=== PATIENT | female | born 1935 | race Caucasian/White ===

== ENCOUNTER 2020-05-01 18:54 | Inpatient (IN) ==
[2020-05-01 20:05] LABS: Basophils # 0.1 10*3/uL (0.0-0.2); Basophils % 0.5 % (0.0-0.8); Eosinophils % 0.3 % (0.00-10.9); Hematocrit 30.5 VOL% (35.7-47.0); Hemoglobin 9.8 GM/DL (12.0-16.0); Immature Granulocytes % 0.5 %; Immature Granulocytes Absolute 0.07 #; Lymphocytes # 1.2 10*3/uL (1.4-4.0); Lymphocytes % 9.2 % (21.3-54.2); Mean Corpuscular HGB Conc 32.1 GM/DL (32-36); Mean Corpuscular Volume 90.5 FL (87-102); Mean Platelet Volume 8.9 FL (9.6-12.0); Monocytes % 7.1 % (1.7-12.7); Neutrophils % 82.4 % (38.7-73.9); Platelet Count 294 T/CUMM (130-400); Red Blood Count 3.37 MC/CUMM (3.8-5.5); Red Cell Distribution Width 14.1 % (9.3-17.3); White Blood Count 12.9 T/CUMM (4-12)
[2020-05-01 20:20] LABS: INR 1.1; PT Patient Result 11.5 SECS (9.8-11.9)
[2020-05-01] MEDS ORDERED: LORazepam 2 MG/1 ML VIAL IV STA ×2 (20:23→21:48)
[2020-05-01] MEDS ORDERED: LORazepam 2 MG/1 ML VIAL ONE (20:24)
[2020-05-01 20:29] LABS: Albumin 2.3 G/DL (3.4-5.0); Bilirubin,Total 0.4 MG/DL (0.2-1.0); Calcium 8.1 MG/DL (8.5-10.1); Osmolality,Calculated 270.1 MOS/KG (273-304); Total Protein 6.8 G/DL (6.4-8.3)
[2020-05-01 21:33] LABS: Bacteria,Urine Many /HPF (Few); Bilirubin,Urine Negative (Negative); Blood, Urine Small mg/dL (Negative); Glucose,Urine (UA) Negative (Negative); Ketones,Urine Negative (Negative); Mucus,Urine Many /LPF (Occasional); Nitrite,Urine Positive (Negative); Protein,Urine 30 MG/DL; RBC,Urine 21 /HPF (0-4); Urine Appearance CLOUDY (Clear); Urine Color Amber (Yellow); Urine Specific Gravity 1.018 (1.001-1.035); Urine Urobilinogen < 2.0 EU/DL (0.2-1.0); WBC,Urine 653 /HPF (0-6)
[2020-05-01] MEDS ORDERED: cefTRIAXone 1,000 MG in SODIUM CHLORIDE 0.9% 100 ML IV STA (21:49)
[2020-05-01] MEDS ORDERED: ENOXAPARIN 100 MG/ML SYRINGE SUBCUT STA (22:06)
[2020-05-01] MEDS ORDERED: ALUMINUM/MAGNES/SIMETH MAX STR 30 ML UDCUP PO PRN (22:08)
[2020-05-01] MEDS ORDERED: ONDANSETRON 4 MG/2 ML VIAL IV PRN (22:08)
[2020-05-01] MEDS ORDERED: DOCUSATE SODIUM 100 MG CAPSULE PO PRN (22:08)
[2020-05-01] MEDS ORDERED: SODIUM CHLORIDE 0.9% 1,000 ML IV SCH (22:30)
[2020-05-02 04:16] LABS: Basophils # 0.1 10*3/uL (0.0-0.2); Basophils % 0.7 % (0.0-0.8); Eosinophils # 0.1 10*3/uL (0.0-0.87); Eosinophils % 0.8 % (0.00-10.9); Hematocrit 28.6 VOL% (35.7-47.0); Hemoglobin 8.9 GM/DL (12.0-16.0); Immature Granulocytes % 0.5 %; Immature Granulocytes Absolute 0.05 #; Lymphocytes # 1.2 10*3/uL (1.4-4.0); Lymphocytes % 11.8 % (21.3-54.2); Mean Corpuscular HGB Conc 31.1 GM/DL (32-36); Mean Corpuscular Volume 90.5 FL (87-102); Mean Platelet Volume 10.6 FL (9.6-12.0); Monocytes % 9.7 % (1.7-12.7); Neutrophils % 76.5 % (38.7-73.9); Platelet Count 255 T/CUMM (130-400); Red Blood Count 3.16 MC/CUMM (3.8-5.5); Red Cell Distribution Width 14.2 % (9.3-17.3); White Blood Count 10.4 T/CUMM (4-12)
[2020-05-02 04:50] LABS: Calcium 8.5 MG/DL (8.5-10.1); Osmolality,Calculated 274.7 MOS/KG (273-304); Risk Ratio 4.06; Thyroid Stimulating Hormone 3.15 uIU/ml (0.358-3.74); VLDL CHOLESTEROL 13.6 MG/DL
[2020-05-02] MEDS ORDERED: POTASSIUM CHLORIDE 20 MEQ TABLET PO ONE (06:51)
[2020-05-02] MEDS ORDERED: MAGNESIUM SULF RIDER 2 GM in PREMIX 1 EACH IV ONE (06:52)
[2020-05-02] MEDS ORDERED: DILTIAZEM 60 MG TABLET PO SCH ×2 (09:00→15:00)
[2020-05-02] MEDS: ACETAMINOPHEN 325 MG TABLET PO PRN ×2 (09:14→17:59)
[2020-05-02] MEDS: ENOXAPARIN 60 MG/0.6 ML SYRINGE SUBCUT SCH ×2 (09:14→20:42)
[2020-05-02] MEDS ORDERED: DIGOXIN 0.5 MG/2 ML AMP IV ONE (10:47)
[2020-05-02] MEDS ORDERED: MAGNESIUM SULF RIDER 2 GM in PREMIX 1 EACH IV PRN (10:50)
[2020-05-02] MEDS ORDERED: MAGNESIUM SULF RIDER 4 GM in PREMIX 1 EACH IV PRN (10:50)
[2020-05-02 11:28] LABS: % Iron Saturation 8.7 % (18-50); Ferritin 318.6 ng/ml (8-252)
[2020-05-02 11:29] LABS: Folate 8.6 NG/ML (5.4-24.0)
[2020-05-02] MEDS: SOTALOL 80 MG TABLET PO SCH ×2 (11:38→20:47)
[2020-05-02] MEDS: ASCORBIC ACID 500 MG TABLET PO SCH ×2 (11:39→20:47)
[2020-05-02] MEDS: DILTIAZEM 30 MG TABLET PO SCH ×3 (13:11→20:46)
[2020-05-02 14:22] LABS: Calcium 8.1 MG/DL (8.5-10.1); Osmolality,Calculated 273.8 MOS/KG (273-304)
[2020-05-02] MEDS: POTASSIUM CHLORIDE 20 MEQ TABLET PO PRN ×2 (14:46→16:43)
[2020-05-02] MEDS: MELATONIN 3 MG TABLET PO PRN (20:42)
[2020-05-02] MEDS: cefTRIAXone 1,000 MG in SODIUM CHLORIDE 0.9% 100 ML IV SCH (20:44)
[2020-05-03 05:46] LABS: Basophils # 0.1 10*3/uL (0.0-0.2); Basophils % 0.6 % (0.0-0.8); Eosinophils # 0.3 10*3/uL (0.0-0.87); Eosinophils % 2.6 % (0.00-10.9); Hematocrit 25.3 VOL% (35.7-47.0); Hemoglobin 7.8 GM/DL (12.0-16.0); Immature Granulocytes % 0.6 %; Immature Granulocytes Absolute 0.06 #; Lymphocytes % 9.3 % (21.3-54.2); Mean Corpuscular HGB Conc 30.8 GM/DL (32-36); Mean Platelet Volume 10.5 FL (9.6-12.0); Monocytes % 8.4 % (1.7-12.7); Neutrophils % 78.5 % (38.7-73.9); Platelet Count 254 T/CUMM (130-400); Red Blood Count 2.75 MC/CUMM (3.8-5.5); Red Cell Distribution Width 14.6 % (9.3-17.3); White Blood Count 10.8 T/CUMM (4-12)
[2020-05-03 06:16] LABS: Calcium 8.3 MG/DL (8.5-10.1); Osmolality,Calculated 272.7 MOS/KG (273-304)
[2020-05-03 06:17] LABS: Calcium 7.9 MG/DL (8.5-10.1); Osmolality,Calculated 276.5 MOS/KG (273-304)
[2020-05-03] MEDS: SOTALOL 80 MG TABLET PO SCH ×2 (09:23→21:23)
[2020-05-03] MEDS: ASCORBIC ACID 500 MG TABLET PO SCH ×2 (09:23→21:23)
[2020-05-03] MEDS: DILTIAZEM 30 MG TABLET PO SCH ×4 (09:23→21:23)
[2020-05-03] MEDS: ENOXAPARIN 60 MG/0.6 ML SYRINGE SUBCUT SCH ×2 (09:23→21:24)
[2020-05-03] MEDS: ACETAMINOPHEN 325 MG TABLET PO PRN (19:02)
[2020-05-03] MEDS: MELATONIN 3 MG TABLET PO PRN (21:23)
[2020-05-03] MEDS: cefTRIAXone 1,000 MG in SODIUM CHLORIDE 0.9% 100 ML IV SCH (21:23)
[2020-05-04 05:58] LABS: Basophils # 0.1 10*3/uL (0.0-0.2); Basophils % 0.7 % (0.0-0.8); Eosinophils # 0.3 10*3/uL (0.0-0.87); Eosinophils % 3.4 % (0.00-10.9); Hematocrit 25.6 VOL% (35.7-47.0); Hemoglobin 8.1 GM/DL (12.0-16.0); Immature Granulocytes % 0.5 %; Immature Granulocytes Absolute 0.04 #; Lymphocytes # 1.3 10*3/uL (1.4-4.0); Lymphocytes % 15.2 % (21.3-54.2); Mean Corpuscular HGB Conc 31.6 GM/DL (32-36); Mean Corpuscular Volume 91.1 FL (87-102); Mean Platelet Volume 11.1 FL (9.6-12.0); Monocytes % 9.5 % (1.7-12.7); Neutrophils % 70.7 % (38.7-73.9); Platelet Count 238 T/CUMM (130-400); Red Blood Count 2.81 MC/CUMM (3.8-5.5); Red Cell Distribution Width 14.5 % (9.3-17.3); White Blood Count 8.3 T/CUMM (4-12)
[2020-05-04 06:23] LABS: Calcium 8.4 MG/DL (8.5-10.1); Osmolality,Calculated 273.5 MOS/KG (273-304)
[2020-05-04] MEDS ORDERED: MULTIVITAMIN (CENTRUM) TABLET PO SCH (09:00)
[2020-05-04] MEDS: ASCORBIC ACID 500 MG TABLET PO SCH (09:09)
[2020-05-04] MEDS: ENOXAPARIN 60 MG/0.6 ML SYRINGE SUBCUT SCH (09:10)
[2020-05-04] MEDS: DILTIAZEM 30 MG TABLET PO SCH ×2 (09:10→12:10)
[2020-05-04] MEDS: SOTALOL 80 MG TABLET PO SCH (09:10)
[2020-05-04] MEDS ORDERED: GABAPENTIN 100 MG CAPSULE PO SCH (11:00)
[2020-05-04 12:19] VITALS: BP 125/78
[2020-05-04] MEDS ORDERED: cefTRIAXone 1,000 MG in SYRINGE 1 EACH IV ONE (12:40)
[2020-05-04] MEDS ORDERED: SERTRALINE 25 MG TABLET PO SCH (21:00)
== END 2020-05-04 14:00 | disposition swing bed (61) | DRG 300 ==
LOC: EDBD → EDUNIT# → N.ED 18:54 → N.EDINP 22:06 → SUATTDRO 22:06 → N.EDINP 23:43 → N.TELES 05-02 00:07
PROVIDERS: ADMIT Internal Medicine; ATTEND Internal Medicine Geriatric Medicine